=== PATIENT | male | born 1955 | race African-American/Black ===

== ENCOUNTER 2017-08-04 18:23 | Emergency (ER) | payer OTHER ==
[~2017-08-04] VITALS: Ht 175.3 cm; Wt 68.0 kg
[~2017-08-04 18:23] MED LIST: ALBU8.5H8 IH; AMLO10TA2 PO; NICO1PAT25 TD; Nitroglycerin SL; OMEP20CA10 PO; Valsartan PO
[2017-08-04 18:38] VITALS: BP 145/97
== END 2017-08-04 19:01 | disposition home or self-care (01) ==
LOC: ER 18:27
DX: J11.1 Influenza due to unidentified influenza virus with other respiratory manifestations (principal); G89.29 Other chronic pain; J44.9 Chronic obstructive pulmonary disease, unspecified; M54.5 Low back pain; F10.10 Alcohol abuse, uncomplicated; I11.9 Hypertensive heart disease without heart failure; I51.9 Heart disease, unspecified; Z87.11 Personal history of peptic ulcer disease
CPT/HCPCS: 99283; 99406; A4606; Z7610

== ENCOUNTER 2017-08-11 19:22 | Emergency (ER) | payer OTHER ==
[~2017-08-11] VITALS: Ht 175.3 cm; Wt 71.7 kg
--- NOTE | 2017-08-11 19:32 | NUR ---
PT AMBULATORY TO ER BED 11. HERE FOR COUGH AND CONGESTION AND FLU LIKE. SEEN HERE LAST SUNDAY FOR SAME REASON. [employer] PHYSICIAN. HYPERTENSIVE. AWAITING MD FIGUEROA.
--- NOTE | 2017-08-11 20:14 | NUR ---
IV LINE STARTED BLOOD DRAWN AND SENT TO LAB.
[2017-08-11 20:20] LABS: BASOPHILS # (AUTO) 0.1 /CMM (0.0-0.2); BASOPHILS % (AUTO) 1.5 % (0.0-2.0); EOSINOPHILS # (AUTO) 0.4 /CMM (0.0-0.7); EOSINOPHILS % (AUTO) 5.7 % (0.0-6.0); HEMATOCRIT 41 % (39-51); LYMPHOCYTES # (AUTO) 3.4 /CMM (0.8-4.8); LYMPHOCYTES % (AUTO) 43.6 % (20.0-44.0); MEAN CORPUSCULAR HEMOGLOBIN 29 PG (26.0-33.0); MEAN CORPUSCULAR HGB CONC 34 g/dl (31.0-36.0); MEAN CORPUSCULAR VOLUME 86 fL (80-96); MONOCYTES # (AUTO) 0.8 /CMM (0.1-1.30); MONOCYTES % (AUTO) 10.2 % (2.0-12.0); NEUTROPHILS # (AUTO) 3.1 /CMM (1.8-8.9); PLATELET COUNT (AUTO) 221 /CMM (150-450); RED BLOOD CELL COUNT(AUTO) 4.78 MIL/uL (4.5-6.0); WHITE BLOOD COUNT (AUTO) 7.8 K/uL (4.3-11.0)
[2017-08-11] MEDS ORDERED: ONDANSETRON HCL/PF 4 MG/2 ML VIAL ONE (20:21)
[2017-08-11] MEDS ORDERED: IBUPROFEN 600 MG TABLET PO ONE (20:22)
[2017-08-11] MEDS ORDERED: ACETAMINOPHEN ES 500 MG TABLET ONE (20:22)
[2017-08-11] MEDS: IV NS 0.9% 500 ML BAG IV ONE (20:23)
[2017-08-11] MEDS: ONDANSETRON HCL/PF 4 MG/2 ML VIAL IVP ONE (20:23)
--- NOTE | 2017-08-11 20:27 | NUR ---
RADIOLOGY AT BEDSIDE FOR CHEST XRAY.
[2017-08-11] MEDS: ACETAMINOPHEN ES 500 MG TABLET PO ONE (20:31)
[2017-08-11] MEDS: IBUPROFEN 600 MG TABLET PO ONE (20:34)
[2017-08-11 20:49] LABS: ALANINE AMINOTRANSFERASE 158 U/L (12-78); ALBUMIN 3.5 g/dL (3.4-5.0); ALKALINE PHOSPHATASE 90 U/L (46-116); ASPARTATE AMINOTRANSFERASE 78 U/L (15-37); BILIRUBIN,DIRECT 0.1 mg/dL (0.0-0.2); BILIRUBIN,TOTAL 0.4 mg/dL (0.2-1.0); CALCIUM, SERUM 9.3 mg/dL (8.5-10.1); CARBON DIOXIDE 31 mmol/L (21-32); CHLORIDE 105 mmol/L (98-107); CREATININE 1.1 mg/dL (0.6-1.3); GLUCOSE 103 mg/dL (74-106); POTASSIUM 3.4 mmol/L (3.5-5.1); SODIUM SERUM 140 mmol/L (136-145); TOTAL PROTEIN, SERUM 7.4 g/dL (6.4-8.2); UREA NITROGEN, BLOOD 8 mg/dL (7-18)
[2017-08-11 20:52] LABS: TROPONIN I < 0.017 ng/mL (0.00-0.056)
[2017-08-11 21:52] VITALS: BP 145/67
--- NOTE | 2017-08-11 21:52 | NUR ---
Patient discharged to home in stable condition. Written and verbal after care instructions given. Patient verbalizes understanding of instruction.IV removed. Catheter intact and site benign. Pressure and 4x4 applied to site. No bleeding noted.
== END 2017-08-11 21:53 | disposition home or self-care (01) ==
LOC: ER 19:24
DX: B34.9 Viral infection, unspecified (principal); I10 Essential (primary) hypertension; F17.200 Nicotine dependence, unspecified, uncomplicated; Z87.11 Personal history of peptic ulcer disease
CPT/HCPCS: 36415; 71045-TC; 80048-TC; 80076-TC; 84484-TC; 85025-TC; A4606; J2405; J7040; Z7610

== ENCOUNTER 2017-08-12 10:07 | Emergency (ER) | payer OTHER ==
[~2017-08-12] VITALS: Ht 175.3 cm; Wt 71.7 kg
--- NOTE | 2017-08-12 10:15 | NUR ---
AAOX3, CAME TO ER C/O INTERMITTENT L SIDED CHEST PAIN ACHING WHEN WAKING UP THIS MORNING COUGH, CONGESTION, HEADACHE, HIGH BLOOD PRESSURE X 1 WEEK. RR IS EVEN AND UNLABORED WITH NAD NOTED. SKIN IS WARM AND DRY. PLACED ON MONITOR. WILL CONTINUOUSLY MONITOR THE PATIENT. DR MCGHEE AT BS FOR EVAL.
[2017-08-12] MEDS: IV NS 0.9% 500 ML BAG IV ONE (10:44)
[2017-08-12] MEDS ORDERED: ACETAMINOPHEN ES 500 MG TABLET ONE (10:45)
[2017-08-12 10:48] LABS: BASOPHILS # (AUTO) 0.1 /CMM (0.0-0.2); BASOPHILS % (AUTO) 1.2 % (0.0-2.0); EOSINOPHILS # (AUTO) 0.5 /CMM (0.0-0.7); HEMATOCRIT 43 % (39-51); HEMOGLOBIN 14.6 g/dL (13.5-17.5); LYMPHOCYTES # (AUTO) 2.3 /CMM (0.8-4.8); LYMPHOCYTES % (AUTO) 34.6 % (20.0-44.0); MEAN CORPUSCULAR HEMOGLOBIN 29 PG (26.0-33.0); MEAN CORPUSCULAR HGB CONC 34 g/dl (31.0-36.0); MEAN CORPUSCULAR VOLUME 86 fL (80-96); MONOCYTES # (AUTO) 0.9 /CMM (0.1-1.30); MONOCYTES % (AUTO) 13.1 % (2.0-12.0); NEUTROPHILS # (AUTO) 2.7 /CMM (1.8-8.9); NEUTROPHILS % (AUTO) 43.1 % (43.0-81.0); PLATELET COUNT (AUTO) 220 /CMM (150-450); RDW COEFFICIENT OF VARIATION 13.4 (11.5-15.0); RED BLOOD CELL COUNT(AUTO) 5.04 MIL/uL (4.5-6.0); WHITE BLOOD COUNT (AUTO) 6.5 K/uL (4.3-11.0)
[2017-08-12] MEDS: ACETAMINOPHEN ES 500 MG TABLET PO ONE (10:51)
--- NOTE | 2017-08-12 10:54 | NUR ---
PATIENT TRANSPORTED FOR CT HEAD VIA GURNEY. PATIENT REMAINS IN STABLE CONDITION AT THIS TIME.
[2017-08-12 10:58] LABS: CALCIUM, SERUM 8.7 mg/dL (8.5-10.1); CARBON DIOXIDE 33 mmol/L (21-32); CHLORIDE 104 mmol/L (98-107); CREATININE 1.1 mg/dL (0.6-1.3); GLUCOSE 102 mg/dL (74-106); POTASSIUM 3.8 mmol/L (3.5-5.1); SODIUM SERUM 139 mmol/L (136-145); UREA NITROGEN, BLOOD 9 mg/dL (7-18)
[2017-08-12 11:07] LABS: TROPONIN I < 0.017 ng/mL (0.00-0.056)
[2017-08-12] MEDS: AMLODIPINE BESYLATE 5 MG TABLET PO ONE (11:55)
[2017-08-12] MEDS: VALSARTAN 80 MG TABLET PO ONE (11:56)
[2017-08-12] MEDS ORDERED: AMLODIPINE BESYLATE 5 MG TABLET ONE (11:57)
--- NOTE | 2017-08-12 12:04 | NUR ---
IV removed. Catheter intact and site benign. Pressure and 4x4 applied to site. No bleeding noted.Patient discharged to home in stable condition. Written and verbal after care instructions given. Patient verbalizes understanding of instruction.
[2017-08-12 12:05] VITALS: BP 159/102
== END 2017-08-12 12:08 | disposition home or self-care (01) ==
LOC: ER 10:08
DX: J11.1 Influenza due to unidentified influenza virus with other respiratory manifestations (principal); I10 Essential (primary) hypertension; G89.29 Other chronic pain; Z87.11 Personal history of peptic ulcer disease; F17.200 Nicotine dependence, unspecified, uncomplicated; Z79.899 Other long term (current) drug therapy
CPT/HCPCS: 36415; 70450-TC; 71045-TC; 80048-TC; 84484-TC; 85025-TC; A4606; J7040; Z7610

== ENCOUNTER 2017-09-15 11:22 | Emergency (ER) | payer OTHER ==
[~2017-09-15] VITALS: Ht 175.3 cm; Wt 72.6 kg
[2017-09-15 11:33] VITALS: BP 163/101
== END 2017-09-15 12:52 | disposition home or self-care (01) ==
LOC: ER 11:25
DX: R05 Cough (principal); R11.0 Nausea; I10 Essential (primary) hypertension; J44.9 Chronic obstructive pulmonary disease, unspecified; G89.29 Other chronic pain; F17.200 Nicotine dependence, unspecified, uncomplicated; Z87.11 Personal history of peptic ulcer disease
CPT/HCPCS: 71045; 99283; 99406; A4606; Z7610